=== PATIENT | male | born 2000 | race Caucasian/White ===

== ENCOUNTER → 2021-09-26 | Outpatient (CLI) | payer OTHER, SELFPAY ==
[2021-10-03 00:08] LABS: Alternaria tenuis 2.07 kU/L (Class III); Aspergillus fumigatus 5.58 kU/L (Class IV); Bermuda Grass 1.66 kU/L (Class III); Birch 7.37 kU/L (Class IV); Cedar, Mountain 2.65 kU/L (Class III); Cockroach, American 0.83 kU/L (Class II); Cottonwood 3.11 kU/L (Class III); Elm, American White 8.71 kU/L (Class IV); Immunoglobulin E 1033 IU/mL (6-495); Maple/Box Elder 2.53 kU/L (Class III); Mulberry, White <0.10 kU/L (Class 0); Oak, White 8.38 kU/L (Class IV); Penicillium Notatum 0.71 kU/L (Class II); Pigweed, Rough 5.97 kU/L (Class IV); Russian Thistle 3.31 kU/L (Class III); Sheep Sorrel 1.77 kU/L (Class III); Sycamore, American 3.35 kU/L (Class III)
[2021-10-03 02:07] LABS: Egg, Whole <0.10 kU/L (Class 0); Egg, Yolk <0.10 kU/L (Class 0); Gluten 0.14 kU/L (Class 0/I); Milk (Cow) 1.47 kU/L (Class III); Oat 2.51 kU/L (Class III); Rice 1.47 kU/L (Class III); Soybean 0.91 kU/L (Class II); Wheat 1.17 kU/L (Class II)
[2021-10-07 13:53] LABS: Mouse Urine <0.10 kU/L (Class 0)
[2021-10-07 13:57] LABS: Egg, White <0.10 kU/L (Class 0); Yeast 6.16 kU/L (Class IV)
== END | disposition home or self-care (01) ==
PROVIDERS: Visit Provider Otolaryngology
DX: T78.40XA Allergy, unspecified, initial encounter (principal); X58.XXXA Exposure to other specified factors, initial encounter
CPT/HCPCS: 36415; 82785; 86003